=== PATIENT | female | born 1935 | race Caucasian/White ===

== ENCOUNTER 2016-06-19 08:07 | Outpatient (CLI) | payer MEDICARE ==
[2016-06-19 12:33] LABS: #Basophils 0.1 thou/uL (0.0-0.2); #Eosinphils 0.2 thou/uL (0.0-0.7); #Lymphocytes 1.4 thou/uL (1.20-3.40); #Monocytes 0.7 thou/uL (0.11-0.59); #Neutrophils 6.1 thou/uL (1.40-6.50); %Basophils 0.9 % (0.0-1.0); %Eosinophils 2.2 % (0.0-10.0); %Lymphocytes 16.5 % (21.0-51.0); %Monocytes 8.3 % (0.0-10.0); %Neutrophils 72.1 % (42.0-75.0); Hemoglobin 13.9 g/dL (12.0-16.0); Mean Corpuscular HGB CONC 32.9 g/dL (32.0-36.0); Mean Corpuscular Hemoglobin 29.6 pg (27.0-31.0); Mean Corpuscular Volume 90.1 fl (81.0-99.0); Mean Platelet Volume 6.5 fL (7.4-10.4); Platelet Count 233 thou/uL (130-400); RBC Distribution Width 12.9 % (11.5-14.5); Red Blood Cell (RBC) Count 4.69 mill/uL (4.20-5.40); White Blood Cell (WBC) Count 8.5 thou/uL (4.8-10.8)
[2016-06-19 13:04] LABS: ALT (SGPT) 21 U/L (0-55); AST (SGOT) 20 U/L (5-34); Albumin 4.4 g/dL (3.4-4.8); Alkaline Phosphatase 78 U/L (40-150); Anion Gap 16 mmol/L (10-20); BUN (Urea Nitrogen) 24 mg/dL (9.8-20.1); Bilirubin, Direct 0.1 mg/dL (0.1-0.3); Bilirubin, Total 0.3 mg/dL (0.2-1.2); Calc. Creatinine Clearance 0 mL/min (70-130); Calcium 9.8 mg/dL (7.8-10.44); Carbon Dioxide 22 mmol/L (23-31); Cardiac Risk 5.2 (Less than 4.5); Chloride 105 mmol/L (98-107); Cholesterol 186 mg/dL (< 200 Desired); Estimated GFR-MDRD 59; Glucose 103 mg/dL (83-110); HDL Cholesterol 36 mg/dL (>60 Neg Risk); LDL Cholesterol, Calculated 98 mg/dL; Potassium 5.2 mmol/L (3.5-5.1); Protein, Total 7.6 g/dL (5.8-8.1); Sodium 138 mmol/L (136-145); Triglycerides 260 mg/dL (Less than 150)
[2016-06-19 13:42] LABS: Hemoglobin A1c 6.1 % (4.0-6.0)
== END 2016-06-19 08:08 ==
LOC: NAVSJIPCSP 08:07
PROVIDERS: ATTEND Family Medicine
DX: J30.9 Allergic rhinitis, unspecified (principal); J44.9 Chronic obstructive pulmonary disease, unspecified; F41.8 Other specified anxiety disorders; K21.9 Gastro-esophageal reflux disease without esophagitis; M19.90 Unspecified osteoarthritis, unspecified site; Z79.899 Other long term (current) drug therapy
CPT/HCPCS: 36415; 80048; 80061; 80076; 83036; 84443; 85025

== ENCOUNTER 2016-10-17 08:51 | Outpatient (CLI) | payer MEDICARE ==
[2016-10-17 12:29] LABS: #Basophils 0.1 thou/uL (0.0-0.2); #Eosinphils 0.2 thou/uL (0.0-0.7); #Lymphocytes 1.1 thou/uL (1.20-3.40); #Monocytes 0.6 thou/uL (0.11-0.59); #Neutrophils 4.6 thou/uL (1.40-6.50); %Basophils 0.8 % (0.0-1.0); %Eosinophils 3.1 % (0.0-10.0); %Lymphocytes 17.4 % (21.0-51.0); %Monocytes 8.5 % (0.0-10.0); %Neutrophils 70.2 % (42.0-75.0); Hemoglobin 13.5 g/dL (12.0-16.0); Mean Corpuscular HGB CONC 31.9 g/dL (32.0-36.0); Mean Corpuscular Hemoglobin 28.4 pg (27.0-31.0); Mean Corpuscular Volume 88.9 fl (81.0-99.0); Platelet Count 190 thou/uL (130-400); RBC Distribution Width 12.6 % (11.5-14.5); Red Blood Cell (RBC) Count 4.74 mill/uL (4.20-5.40); White Blood Cell (WBC) Count 6.5 thou/uL (4.8-10.8)
[2016-10-17 12:50] LABS: ALT (SGPT) 22 U/L (8-55); AST (SGOT) 22 U/L (5-34); Albumin 4.2 g/dL (3.4-4.8); Alkaline Phosphatase 80 U/L (40-150); Anion Gap 16 mmol/L (10-20); BUN (Urea Nitrogen) 20 mg/dL (9.8-20.1); Bilirubin, Direct 0.1 mg/dL (0.1-0.3); Bilirubin, Total 0.3 mg/dL (0.2-1.2); Calc. Creatinine Clearance 0 mL/min (70-130); Calcium 9.4 mg/dL (7.8-10.44); Carbon Dioxide 24 mmol/L (23-31); Cardiac Risk 5.2 (Less than 4.5); Chloride 107 mmol/L (98-107); Cholesterol 176 mg/dl (< 200 Desired); Estimated GFR-MDRD 67; Glucose 98 mg/dL (83-110); HDL Cholesterol 34 mg/dL (>60 Neg Risk); LDL Cholesterol, Calculated 98 mg/dL; Potassium 4.5 mmol/L (3.5-5.1); Protein, Total 7.1 g/dL (6.0-8.3); Sodium 142 mmol/L (136-145); Triglycerides 220 mg/dL (Less than 150)
[2016-10-17 13:03] LABS: Hemoglobin A1c 6.1 % (4.0-6.0)
== END 2016-10-17 08:52 | disposition home or self-care (01) ==
LOC: NAVSJIPCSP 08:51
PROVIDERS: ATTEND Family Medicine
DX: E78.00 Pure hypercholesterolemia, unspecified (principal); J44.9 Chronic obstructive pulmonary disease, unspecified; K21.9 Gastro-esophageal reflux disease without esophagitis; J30.9 Allergic rhinitis, unspecified; L82.1 Other seborrheic keratosis; F41.8 Other specified anxiety disorders; Z79.899 Other long term (current) drug therapy
CPT/HCPCS: 36415; 80048; 80061; 80076; 83036; 84443; 85025

== ENCOUNTER 2019-01-05 16:47 | Emergency (ER) | payer MEDICARE ==
[~2019-01-05 16:47] MED LIST: Iopamidol 370 76% 100 ML VIAL ONE
[2019-01-05 17:37] LABS: #Eosinphils 0.1 thou/uL (0.0-0.7); #Lymphocytes 1.4 thou/uL (1.20-3.40); #Monocytes 0.8 thou/uL (0.11-0.59); #Neutrophils 6.8 thou/uL (1.40-6.50); %Basophils 0.5 % (0.0-1.0); %Eosinophils 1.4 % (0.0-10.0); %Lymphocytes 14.8 % (21.0-51.0); %Monocytes 9.2 % (0.0-10.0); Hemoglobin 11.7 g/dL (12.0-16.0); Mean Corpuscular HGB CONC 31.7 g/dL (32.0-36.0); Mean Corpuscular Hemoglobin 27.3 pg (27.0-31.0); Mean Platelet Volume 7.7 fL (7.4-10.4); Platelet Count 173 thou/uL (130-400); RBC Distribution Width 12.7 % (11.5-14.5); White Blood Cell (WBC) Count 9.1 thou/uL (4.8-10.8)
[2019-01-05] MEDS ORDERED: Sodium Chloride 0.9% 1,000 ML ONE (17:40)
[2019-01-05] MEDS ORDERED: Morphine 4 MG/ML VIAL ONE (17:41)
[2019-01-05] MEDS ORDERED: Ondansetron PF 4 MG/2 ML Vial ONE (17:41)
[2019-01-05 17:53] LABS: ALT (SGPT) 17 U/L (8-55); AST (SGOT) 23 U/L (5-34); Alkaline Phosphatase 84 U/L (40-110); Anion Gap 17 mmol/L (10-20); BUN (Urea Nitrogen) 20 mg/dL (9.8-20.1); Bilirubin, Total 0.2 mg/dL (0.2-1.2); Calc. Creatinine Clearance 0 mL/min (70-130); Calcium 9.2 mg/dL (7.8-10.44); Carbon Dioxide 21 mmol/L (23-31); Chloride 105 mmol/L (98-107); Estimated GFR-MDRD 60; Globulin 3.3 g/dL (2.4-3.5); Glucose 117 mg/dL (83-110); Lipase 9 U/L (8-78); Potassium 4.5 mmol/L (3.5-5.1); Protein, Total 7.3 g/dL (6.0-8.3); Sodium 138 mmol/L (136-145)
[2019-01-05 18:27] LABS: CKMB 1.4 ng/mL (0-6.6)
--- NOTE | 2019-01-05 18:30 | CT ---
CT ABDOMEN AND PELVIS WITH IV CONTRAST 01/05/2019 CLINICAL INFORMATION: Left and right lower quadrant abdominal pain. History of abdominal wall hernia. Patient states pain h as been getting worse throughout the day. COMPARISON: CT abdomen and pelvis on 06/03/2012 and PET/CT exam on 04/09/2016. Technique: Multiple contiguous axial CT images are obtained through the abdomen and pelvis with IV contrast. Cor onal reformatted images are provided. FINDINGS: Lower Chest: There is bibasilar atelectasis. Vessels: Vascular calcifications are seen in the abdominal aorta and involving the iliac arteries. Abdomen: Portal vein:Patent Gallbladder: Surgically absent with mild intra and extrahepatic biliary duct dilatation related to re servoir effect. Liver: within normal limits. Spleen: Small splenic granulomata is again present. Pancreas: within normal limits. Adrenals: within normal limits. Kidneys: within normal limits. Bowel: A hiatal hernia is again present with the fundus of the stomach above the level of the hemidia phragms. Postsurgical changes of loops of bowel in the right abdomen are noted with small bowel colonic anastomosis present. Multiple colonic diverticula are seen predominantly involving the descen ding and sigmoid colon but also involving the transverse colon to a lesser extent. Mesentery: There is inflammatory stranding seen within the central mesentery with area of fat seen ce ntrally and inflammatory changes surrounding this region. These findings are likely related to omental infarction or less likely epiploic appendagitis. Mesenteric panniculitis is a possibility. Ho wever, there is a prominent diverticulum in this region, and diverticulitis could be a possibility but is felt less likely. There is no colonic wall thickening in this region. No fluid collection is seen in the abdomen or pelvis. Abdominal Wall: Ventral abdominal wall hernias are seen one of which contains loops of small bowel wi thout evidence of a bowel obstruction within adjacent fat-containing ventral abdominal wall hernia as well. Pelvis: Reproductive Organs: Uterus is surgically absent. Pelvis within normal limits. Bladder: within normal limits. Bones: Multilevel degenerative changes are seen in the spine with mild right convex curvature of the lumbar spine. There is mild bilateral hip osteoarthritis present. IMPRESSION: 1. Inflammatory stranding seen in the central mesentery posterior and inferior to the transverse colo n and adjacent to loops of small bowel. The appearance of this area of inflammatory change is most suggestive of an omental infarction. Epiploic appendagitis is less likely. There is a closely adjacen t prominent diverticulum in region of inflammatory changes, and diverticulitis cannot be entirely excluded; however, this is felt less likely as there is no associated colonic wall thickening. No thi ckened loops of small bowel are visualized. 2. Postsurgical changes of the colon with posterior right hemicolectomy and small bowel colonic anast omosis seen in the right lower quadrant. 3. Ventral abdominal hernia containing loops of small bowel without evidence of a bowel obstruction. Closely adjacent fat-containing ventral abdominal wall hernia is also noted. 4. Postcholecystectomy changes. 5. Hysterectomy. 6. Hiatal hernia. 7. Colonic diverticulosis.
[2019-01-05] MEDS ORDERED: cefTRIAXone\\ROCEPHIN 1 GM VIAL ONE (19:12)
[2019-01-05] MEDS ORDERED: metroNIDAZOLE 500 MG/100 ML BAG ONE (19:49)
[2019-01-05 20:09] LABS: Bilirubin Negative (Negative); Blood, Urine Trace (Negative); Clarity Clear (Clear); Glucose, Urine (Dipstick) Negative (Negative); Leukocyte Negative (Negative); Nitrite Negative (Negative); Protein, Urine (Dipstick) Negative (Neg-Trace); Urobilinogen 0.2 mg/dL (Less than 2)
[2019-01-05 20:22] LABS: Bacteria/HPF Rare-Few HPF (None Seen); RBC/HPF 0-3 HPF (0-3); Squamous Epithelial 0-3 HPF (0-3)
== END 2019-01-05 20:15 | disposition short-term general hospital (02) ==
LOC: NAV ERS 16:47
DX: K52.89 Other specified noninfective gastroenteritis and colitis (principal); J44.9 Chronic obstructive pulmonary disease, unspecified; Z85.038 Personal history of other malignant neoplasm of large intestine; Z87.891 Personal history of nicotine dependence; Z79.82 Long term (current) use of aspirin; Z79.899 Other long term (current) drug therapy
CPT/HCPCS: 74177; 80053; 81003; 81015; 82553; 83690; 84484; 85025; 93005; 96361; 96365; 96367; 96375; J0696; J2270; J2405; J7050; Q9967

== ENCOUNTER 2020-03-22 11:36 | Emergency (ER) | payer MEDICARE ==
[2020-03-22 12:40] LABS: ALT (SGPT) 15 U/L (8-55); AST (SGOT) 25 U/L (5-34); Albumin 3.1 g/dL (3.4-4.8); Alkaline Phosphatase 74 U/L (40-110); Anion Gap 15 mmol/L (10-20); BUN (Urea Nitrogen) 40 mg/dL (9.8-20.1); Bilirubin, Total 0.4 mg/dL (0.2-1.2); Calc. Creatinine Clearance 0 mL/min (70-130); Calcium 8.4 mg/dL (7.8-10.44); Carbon Dioxide 26 mmol/L (23-31); Chloride 102 mmol/L (98-107); Globulin 2.7 g/dL (2.4-3.5); Glucose 165 mg/dL (83-110); Protein, Total 5.8 g/dL (6.0-8.3); Sodium 139 mmol/L (136-145)
[2020-03-22 12:43] LABS: Base Excess-Venous 2.4 mmol/L (-2.0 to 3.0); Bicarbonate (HCO3v) 27.3 mmol/L (22.0-28.0); CO2 Tension (PvCO2) 43.1 mmHg (40.0-50.0); Calcium, Ionized 1.11 mmol/L (1.15-1.33); Chloride 101 mmol/L (98-107); Hemoglobin - Calc 6.3 g/dL (12.0-16.0); Sodium 138 mmol/L (138-145); T. Carbon Dioxide 28.6 mmol/L (22.0-28.0); vO2 Saturation-calc 74.8 % (60.0-85.0)
--- NOTE | 2020-03-22 13:12 | RAD ---
PORTABLE CHEST 1 VIEW: Date: 03/22/2020 Time: 1231 hours HISTORY: Difficulty breathing, COPD. COMPARISON: 12/07/2019. FINDINGS: Interval development of a moderate sized left pleural effusion has developed in the interim. The hear t size is stable. The left-sided pacemaker device remains in place. The right lung is unremarkable. N o pneumothoraces are seen. IMPRESSION: Moderate sized left pleural effusion. POS: AH
[2020-03-22 13:23] LABS: #Basophils 0.1 thou/uL (0.0-0.2); #Eosinphils 0.1 thou/uL (0.0-0.7); #Lymphocytes 0.7 thou/uL (1.20-3.40); #Monocytes 1.2 thou/uL (0.11-0.59); #Neutrophils 13.6 thou/uL (1.40-6.50); %Basophils 0.4 % (0.0-1.0); %Eosinophils 0.7 % (0.0-10.0); %Lymphocytes 4.4 % (21.0-51.0); %Monocytes 7.6 % (0.0-10.0); %Neutrophils 86.9 % (42.0-75.0); Hemoglobin 6.4 g/dL (12.0-16.0); Mean Corpuscular HGB CONC 29.6 g/dL (32.0-36.0); Mean Corpuscular Hemoglobin 27.8 pg (27.0-31.0); Mean Corpuscular Volume 94.1 fL (78.0-98.0); Mean Platelet Volume 7.5 fL (7.4-10.4); Platelet Count 295 thou/uL (130-400); RBC Distribution Width 13.8 % (11.5-14.5); Red Blood Cell (RBC) Count 2.29 mill/uL (4.20-5.40); White Blood Cell (WBC) Count 15.6 thou/uL (4.8-10.8)
[2020-03-22] MEDS ORDERED: Sodium Chloride 0.9% 500 ML ONE (14:19)
--- NOTE | 2020-03-22 14:38 | CT ---
EXAM: CT pulmonary angiogram with IV contrast and three-dimensional reconstructions PROVIDED CLINICAL HISTORY: Dyspnea COMPARISON: 11/11/2017 FINDINGS: Evaluation is limited due to patient respiratory motion and bolus timing. There is no evidence for central pulmonary embolus. There is insufficient visualization of the segmen tatum pulmonary arteries for comment. Vascular calcification including coronary calcium is demonstrated. Cardiac pacing device and aortic valve replacement demonstrated. There is a high-grade calcified stenosis involving the right carotid bulb. There is a at least moderate if not high-grade calcified stenosis involving the left carotid bulb. There is a large left pleural effusion with associated passive atelectasis of the left lower lobe. Wiggins perimposed heterogeneous density within the atelectatic lung may be on the basis of superimposed pneumonia. Emphysematous changes are seen. There are scattered parenchymal abnormalities within the r ight upper and left upper lobes which are inadequately characterized due to patient respiratory motion. There is a 1 cm pulmonary nodule present at the right lung base posteriorly. There is no evidence for pneumothorax. There are enlarged lymph nodes present within the mediastinum, largest left pretracheal measuring at least 2.2 cm in short axis. There is no evidence for axillary lymph node enlargement. There is insufficient visualization of the ena for comment regardin g hilar lymph nodes. The visualized portions of the upper abdomen demonstrate no acute abnormality. The osseous structures demonstrate no concerning lytic or blastic lesions. IMPRESSION: 1. Limited examination on the basis of patient respiratory motion. 2. No evidence for central pulmonary embolus, with inadequate visualization of the more distal pulmon faisal arterial system for comment regarding pulmonary embolus. 3. Large left pleural effusion with subsegmental atelectasis involving the left lower lobe, with supe rimposed pneumonia suspected. 4. Multiple pulmonary parenchymal opacities that are incompletely characterized on the basis of motio n, as well as a 1 cm right lower lobe pulmonary nodule that is suspicious for malignancy. 5. Mediastinal adenopathy. 6. Bilateral high-grade carotid bulb calcified stenoses. 7. Other findings as above.
[2020-03-22] MEDS ORDERED: Sodium Chloride 0.9% 100 ML ONE (15:02)
[2020-03-22] MEDS ORDERED: cefTRIAXone\\ROCEPHIN 2 GM VIAL ONE (15:02)
[2020-03-22 15:14] LABS: Lactic Acid 1.1 mmol/L (0.5-2.2)
[2020-03-22] MEDS ORDERED: Sodium Chloride 0.9% 250 ML 250 ML ONE (15:50)
[2020-03-22] MEDS ORDERED: Azithromycin 500 MG VIAL ONE (15:50)
[2020-03-22 16:57] LABS: SARS-CoV-2 NAA Rapid Test Not Detected (NotDetected)
[2020-03-22] MEDS ORDERED: Ventolin HFA Inhaler 60 PUFF INHALER ONE (16:59)
== END 2020-03-22 18:48 | disposition short-term general hospital (02) ==
LOC: NAV ERS 11:36
DX: J18.9 Pneumonia, unspecified organism (principal); D64.9 Anemia, unspecified; J90 Pleural effusion, not elsewhere classified; N28.9 Disorder of kidney and ureter, unspecified; Z20.822 Contact with and (suspected) exposure to COVID-19; J44.9 Chronic obstructive pulmonary disease, unspecified; Z79.82 Long term (current) use of aspirin; Z79.51 Long term (current) use of inhaled steroids; Z79.899 Other long term (current) drug therapy
CPT/HCPCS: 0240U; 36430; 71045; 71275; 80053; 82330; 82803; 83605; 83880; 85014; 85025; 85379; 86850; 86900; 86901; 87040; 93005; 96365; 96366; 96367; J0456; J0696; J3490; J7030; J7050; P9016